=== PATIENT | female | born 1950 | race Two or more races ===

== ENCOUNTER 2024-01-03 07:40 | Inpatient (IN) | payer MEDICARE, OTHER ==
[2024-01-03] VITALS (8 sets, daily range): BP systolic 99–145; BP diastolic 63–75; TEMP 97.9–98.4; O2SAT 94–96
[~2024-01-03] VITALS: Ht 165.1 cm; Wt 97.5 kg
[~2024-01-03 07:40] MED LIST: GLYB1TAB3 PO; SIMV80TA90 PO
[2024-01-03] MEDS ORDERED: VANCOMYCIN 1 GM VIAL ONE (10:08)
[2024-01-03] MEDS ORDERED: dexaMETHasone SOD PHOSPHATE 1 ML ONE (10:08)
[2024-01-03] MEDS ORDERED: LIDOCAINE 2%-EPI 1:100,000 30 ML VIAL ONE (10:08)
[2024-01-03] MEDS: HYDROMORPHONE 1 MG/1 ML DISP.SYRIN IV PRN (13:21)
[2024-01-03] MEDS ORDERED: ACETAMINOPHEN 325 MG TABLET PO PRN ×2 (13:30→14:00)
[2024-01-03] MEDS ORDERED: ONDANSETRON HCL/PF 4 MG/2 ML VIAL IV PRN ×2 (13:30)
[2024-01-03] MEDS ORDERED: ONDANSETRON HCL/PF 4 MG/2 ML VIAL IVP PRN (14:00)
[2024-01-03] MEDS ORDERED: Z GUARD REMEDY 4 OZ OINT TP PRN (14:00)
[2024-01-03] MEDS ORDERED: MAG HYDROX/AL HYDROX/SIMETH 30 ML UDC PO PRN (14:00)
[2024-01-03] MEDS ORDERED: MAGNESIUM HYDROXIDE 30 ML UDC PO PRN (14:00)
[2024-01-03] MEDS ORDERED: ICOS1CAP PO (16:58)
[2024-01-03] MEDS ORDERED: EVOL140P3 SQ (16:58)
[2024-01-03] MEDS ORDERED: INSU3INS8 SQ ×2 (16:58)
[2024-01-03] MEDS ORDERED: EZET10TA32 PO (16:58)
[2024-01-03] MEDS ORDERED: IBUP-23 PO (16:58)
[2024-01-03] MEDS ORDERED: LOSA1TAB42 PO (16:58)
[2024-01-03] MEDS ORDERED: DEXTROSE 50%-WATER 50 ML DISP.SYRIN IV PRN (17:00)
[2024-01-03] MEDS: BLOOD SUGAR DIAGNOSTIC 1 EACH STRIP IN SCH (17:18)
[2024-01-03] MEDS: INSULIN ASPART SQ SCH (17:47)
[2024-01-03] MEDS: INSULIN ASPART PROTAMINE SQ SCH (17:47)
[2024-01-03] MEDS: INSULIN REGULAR, HUMAN 100 UNIT/ML 3 ML VIAL SQ PRN (17:51)
[2024-01-03] MEDS: IV NS 0.9% 1,000 ML IV PRN (22:49)
[2024-01-03] MEDS: VANCOMYCIN 1 GM in IV D5W 250ml IV SCH (23:18)
[2024-01-04 06:23] LABS: BASOPHILS % (AUTO) 0.1 % (0.0-2.0); HEMATOCRIT 33 % (33-45); HEMOGLOBIN 11.1 g/dL (11.5-14.8); LYMPHOCYTES # (AUTO) 1.6 K/uL (0.8-4.8); LYMPHOCYTES % (AUTO) 15.1 % (20.0-44.0); MEAN CORPUSCULAR HEMOGLOBIN 29 PG (26.0-33.0); MEAN CORPUSCULAR HGB CONC 34 g/dl (31.0-36.0); MEAN CORPUSCULAR VOLUME 85 fL (82-100); MONOCYTES # (AUTO) 0.6 K/uL (0.1-1.30); MONOCYTES % (AUTO) 5.4 % (2.0-12.0); NEUTROPHILS # (AUTO) 8.3 K/uL (1.8-8.9); NEUTROPHILS % (AUTO) 79.4 % (43.0-81.0); PLATELET COUNT (AUTO) 234 K/uL (150-450); RED BLOOD CELL COUNT(AUTO) 3.84 MIL/uL (4.0-5.2); WHITE BLOOD COUNT (AUTO) 10.4 K/uL (4.3-11.0)
[2024-01-04 06:49] LABS: CALCIUM, SERUM 8.9 mg/dL (8.5-10.1); CARBON DIOXIDE 26 mmol/L (21-32); CHLORIDE 102 mmol/L (98-107); CREATININE 0.7 mg/dL (0.6-1.3); GLUCOSE 259 mg/dL (74-106); MAGNESIUM 2.3 mg/dL (1.8-2.4); PHOSPHORUS 3.4 mg/dL (2.5-4.9); POTASSIUM 4.2 mmol/L (3.5-5.1); SODIUM SERUM 139 mmol/L (136-145); UREA NITROGEN, BLOOD 15 mg/dL (7-18)
[2024-01-04] MEDS: INSULIN ASPART SQ SCH (07:09)
[2024-01-04] MEDS: INSULIN ASPART PROTAMINE SQ SCH (07:09)
[2024-01-04 08:00] VITALS: BP 121/51; TEMP 98.1; O2SAT 96
[2024-01-04] MEDS: PANTOPRAZOLE 40 MG TABLET.DR PO SCH (09:26)
== END 2024-01-04 12:30 | disposition home or self-care (01) | DRG 497 ==
LOC: DS 07:40 → MED 07:42
PROVIDERS: ADMIT Nurse Practitioner Family; ATTEND Nurse Practitioner Family
PROC: 0N5R0ZZ Destruction of Maxilla, Open Approach (ICD-10-PCS; principal; 2024-01-03)
PROC: 0N5V0ZZ Destruction of Left Mandible, Open Approach (ICD-10-PCS; 2024-01-03)
PROC: 0N5T0ZZ Destruction of Right Mandible, Open Approach (ICD-10-PCS; 2024-01-03)
PROC: 0NUR07Z Supplement Maxilla with Autologous Tissue Substitute, Open Approach (ICD-10-PCS; 2024-01-03)
PROC: 0NSR04Z Reposition Maxilla with Internal Fixation Device, Open Approach (ICD-10-PCS; 2024-01-03)
PROC: 0NSV04Z Reposition Left Mandible with Internal Fixation Device, Open Approach (ICD-10-PCS; 2024-01-03)
PROC: 0NST04Z Reposition Right Mandible with Internal Fixation Device, Open Approach (ICD-10-PCS; 2024-01-03)
DX: S02.40DK Maxillary fracture, left side, subsequent encounter for fracture with nonunion (principal); M27.2 Inflammatory conditions of jaws; S02.69XK Fracture of mandible of other specified site, subsequent encounter for fracture with nonunion; E11.9 Type 2 diabetes mellitus without complications; E66.9 Obesity, unspecified; E78.5 Hyperlipidemia, unspecified; Z88.0 Allergy status to penicillin; T18.0XXA Foreign body in mouth, initial encounter; X58.XXXD Exposure to other specified factors, subsequent encounter; M60.9 Myositis, unspecified; J32.0 Chronic maxillary sinusitis; Z82.49 Family history of ischemic heart disease and other diseases of the circulatory system; Z68.35 Body mass index [BMI] 35.0-35.9, adult; Z79.899 Other long term (current) drug therapy; D16.4 Benign neoplasm of bones of skull and face; S02.40CK Maxillary fracture, right side, subsequent encounter for fracture with nonunion
CPT/HCPCS: 36415; 80048-TC; 82962-TC; 83735-TC; 84100-TC; 85025-TC; 87081-TC; A4338; C1713; G0378; J0461; J1100; J1171; J1815; J2704; J3370; J3490; J7030; J7060

== ENCOUNTER 2024-05-12 08:34 | Inpatient (IN) | payer MEDICARE, OTHER ==
[~2024-05-12] VITALS: Ht 154.9 cm; Wt 98.0 kg
[~2024-05-12 08:34] MED LIST changes: +EVOL140P3 SQ; +EZET10TA32 PO; +IBUP-23 PO; +ICOS1CAP PO; +INSU3INS8 SQ; +LOSA1TAB42 PO; -SIMV80TA90 PO
[2024-05-12] MEDS ORDERED: OXYMETAZOLINE HCL NASAL SPRAY 30 ML BOTTLE NS ONE (12:22)
[2024-05-12] MEDS ORDERED: dexaMETHasone SOD PHOSPHATE 1 ML ONE (13:43)
[2024-05-12] MEDS ORDERED: VANCOMYCIN 1 GM VIAL ONE (13:44)
[2024-05-12] MEDS ORDERED: LIDOCAINE 2%-EPI 1:100,000 30 ML VIAL ONE (15:21)
[2024-05-12] MEDS ORDERED: ALBUTEROL FS 2.5 MG/3 ML VIAL.NEB ONE (15:53)
[2024-05-12 16:45] VITALS: BP 131/68; TEMP 97.9; O2SAT 97
[2024-05-12 16:50] VITALS: BP 131/68; TEMP 97.9; O2SAT 97
[2024-05-12] MEDS ORDERED: ONDANSETRON HCL/PF 4 MG/2 ML VIAL IV PRN (17:00)
[2024-05-12] MEDS ORDERED: HYDROMORPHONE 1 MG/1 ML DISP.SYRIN IV PRN (17:00)
[2024-05-12] MEDS: IV NS 0.9% 1,000 ML IV PRN (17:11)
[2024-05-12] MEDS: ACETAMINOPHEN 325 MG TABLET PO PRN (17:20)
[2024-05-12] MEDS ORDERED: hydrALAZINE HCL IV 20 MG VIAL IV PRN (19:00)
[2024-05-12] MEDS ORDERED: Medication Not On Formulary EA (Losartan/Hydrochlorothiazide (Losartan-Hctz 100-12.5 Mg PO PRN (19:00)
[2024-05-12] MEDS: BLOOD SUGAR DIAGNOSTIC 1 EACH STRIP IN SCH (19:30)
[2024-05-12] MEDS ORDERED: DEXTROSE 50%-WATER 50 ML DISP.SYRIN IV PRN (19:30)
[2024-05-12 20:00] VITALS: BP 121/56; TEMP 97.9; O2SAT 95
[2024-05-12] MEDS: INSULIN REGULAR, HUMAN 100 UNIT/ML 3 ML VIAL SQ PRN (22:32)
[2024-05-13] MEDS: VANCOMYCIN 1 GM in IV D5W 250ml IV SCH (00:43)
[2024-05-13 08:00] VITALS: BP 121/52; TEMP 98.2; O2SAT 96
[2024-05-13 08:07] LABS: BASOPHILS % (AUTO) 0.2 % (0.0-2.0); HEMATOCRIT 37 % (33-45); HEMOGLOBIN 12.1 g/dL (11.5-14.8); LYMPHOCYTES # (AUTO) 1.2 K/uL (0.8-4.8); MEAN CORPUSCULAR HEMOGLOBIN 28 PG (26.0-33.0); MEAN CORPUSCULAR HGB CONC 33 g/dl (31.0-36.0); MEAN CORPUSCULAR VOLUME 83 fL (82-100); MONOCYTES # (AUTO) 0.4 K/uL (0.1-1.30); MONOCYTES % (AUTO) 3.8 % (2.0-12.0); NEUTROPHILS # (AUTO) 9.2 K/uL (1.8-8.9); PLATELET COUNT (AUTO) 246 K/uL (150-450); RED CELL DISTRIBUTION WIDTH 15.5 % (11.5-15.0); WHITE BLOOD COUNT (AUTO) 10.9 K/uL (4.3-11.0)
[2024-05-13 09:19] LABS: ALBUMIN 3.2 g/dL (3.4-5.0); BILIRUBIN,TOTAL 0.2 mg/dL (0.2-1.0); CALCIUM, SERUM 9.2 mg/dL (8.5-10.1); CREATININE 0.8 mg/dL (0.6-1.3); MAGNESIUM 2.2 mg/dL (1.8-2.4); PHOSPHORUS 3.6 mg/dL (2.5-4.9); POTASSIUM 4.2 mmol/L (3.5-5.1); TOTAL PROTEIN, SERUM 7.2 g/dL (6.4-8.2)
== END 2024-05-13 13:35 | disposition home or self-care (01) | DRG 497 ==
LOC: DS 08:34 → MED 17:01
PROVIDERS: ADMIT Internal Medicine; ATTEND Internal Medicine
PROC: 0N5V0ZZ Destruction of Left Mandible, Open Approach (ICD-10-PCS; 2024-05-12)
PROC: 0N5T0ZZ Destruction of Right Mandible, Open Approach (ICD-10-PCS; 2024-05-12)
PROC: 0N5R0ZZ Destruction of Maxilla, Open Approach (ICD-10-PCS; 2024-05-12)
PROC: 0WB30ZZ Excision of Oral Cavity and Throat, Open Approach (ICD-10-PCS; 2024-05-12)
PROC: 0NPW04Z Removal of Internal Fixation Device from Facial Bone, Open Approach (ICD-10-PCS; principal; 2024-05-12 12:20)
DX: T84.69XA Infection and inflammatory reaction due to internal fixation device of other site, initial encounter (principal); M89.38 Hypertrophy of bone, other site; E11.9 Type 2 diabetes mellitus without complications; E78.5 Hyperlipidemia, unspecified; I10 Essential (primary) hypertension; Z88.0 Allergy status to penicillin; Y83.8 Other surgical procedures as the cause of abnormal reaction of the patient, or of later complication, without mention of misadventure at the time of the procedure; Y92.009 Unspecified place in unspecified non-institutional (private) residence as the place of occurrence of the external cause; K13.79 Other lesions of oral mucosa; D16.4 Benign neoplasm of bones of skull and face; Z79.4 Long term (current) use of insulin
CPT/HCPCS: 36415; 80053-TC; 82962-TC; 83735-TC; 84100-TC; 85025-TC; 88305-TC; 88311-TC; A4338; G0378; J0360; J0461; J1100; J1815; J2704; J3370; J3490; J7030; J7060